=== PATIENT | female | born 1980 | race Caucasian/White ===

== ENCOUNTER 2023-02-04 11:41 | Outpatient (REF) | payer MEDICAID, SELFPAY ==
[2023-02-04 14:43] LABS: TSH reflex Free T4 0.69 uIU/mL (0.32-4.0)
== END 2023-02-04 11:42 | disposition home or self-care (01) ==
LOC: HO.HHCL 11:41
PROVIDERS: Visit Provider Internal Medicine Geriatric Medicine
DX: E03.9 Hypothyroidism, unspecified (principal)
CPT/HCPCS: 36415; 84443

== ENCOUNTER 2023-08-02 09:25 | Outpatient (REF) | payer MEDICAID, SELFPAY ==
[2023-08-02 10:48] LABS: Alanine Aminotransferase 13 U/L (0-31); Albumin Level 4.3 g/dL (3.5-5.0); Alkaline Phosphatase 73 U/L (39-117); Anion Gap 11 (12-20); Aspartate Amino Transferase 13 U/L (5-31); Bilirubin Total 1.1 mg/dL (0.0-1.0); Blood Urea Nitrogen 13 mg/dL (9-16); Calcium 9.2 mg/dL (8.4-10.2); Carbon Dioxide 26 mmol/L (22-29); Chloride 107 mmol/L (96-108); Cholesterol 143 mg/dL (<200); Estimated Glomerular Filt Rate > 60; Glucose Random 84 mg/dL (60-115); HDL Cholesterol 47 mg/dL (>40); LDL Cholesterol Calculated 82 mg/dL (<100); Potassium 4.5 mmol/L (3.3-5.1); Sodium 139 mmol/L (135-145); Total Protein 7.3 g/dL (6.5-8.0); Triglycerides 74 mg/dL (<150)
[2023-08-02 11:03] LABS: TSH reflex Free T4 1.51 uIU/mL (0.32-4.0)
== END 2023-08-02 09:26 | disposition home or self-care (01) ==
LOC: HO.LAB 09:25
PROVIDERS: PCP Internal Medicine Geriatric Medicine; Visit Provider Internal Medicine Geriatric Medicine
DX: Z00.00 Encounter for general adult medical examination without abnormal findings (principal); E03.9 Hypothyroidism, unspecified; Z13.220 Encounter for screening for lipoid disorders; Z13.1 Encounter for screening for diabetes mellitus
CPT/HCPCS: 36415; 80053; 80061; 84443

== ENCOUNTER 2024-01-23 15:44 | Outpatient (REF) | payer MEDICAID, SELFPAY ==
[2024-01-23 18:07] LABS: TSH reflex Free T4 21.86 uIU/mL (0.32-4.0)
[2024-01-23 18:40] LABS: Free T4 (Free Thyroxine) 0.73 ng/dL (0.71-1.85)
== END 2024-01-23 15:45 | disposition home or self-care (01) ==
LOC: HO.HHCL 15:44
PROVIDERS: Visit Provider Internal Medicine Geriatric Medicine
DX: E03.9 Hypothyroidism, unspecified (principal)
CPT/HCPCS: 36415; 84439; 84443

== ENCOUNTER 2024-08-18 16:05 | Outpatient (REF) | payer MEDICAID, SELFPAY ==
--- OUTSIDE RECORDS SUMMARY | 2024-08-18 16:07 | XMS_ITS | Encounter Summary ---
Author Organization [employer] Address [address] [place] [address] Care Team Providers Care Guitar Repairer Name Role Phone Name, Shahram SHAIKH Primary Care Provider [phone] Encounter Details Date Type Department Care Team (Latest Contact Info) Description 08/18/2024 Travel Social History Tobacco Use Types Packs/Day Years Used Date Smoking Tobacco: Never Smokeless Tobacco: Never Alcohol Use Standard Drinks/Week Comments Yes 0 (1 standard drink = 0.6 oz pur e alcohol) occassional Depression Answer Date Recorded Patient Health Questionnaire-9 Score 0 2022 Housing Stability Answer Date Recorded What is your housing situation today? I have regina sing 07/15/[address] you li ve. Do you have problems with any of the following? None of the above 07/15/2023 Food Insecurity Answer Date Recorded Within the past 12 months, y ou worried that your food would run out before you got money to buy more: Never True 07/15/2023 Within the past 12 months,th e food you bought just didn't last and you didn't have enough money to get more: Never True Transportation Answer Date Recorded In the past 12 months, has l ack of transportation kept you from medical appts, meetings, work or from getting things needed for daily living? No 07/15/2023 Utilities Answer Date Recorded In the past 12 months, has t he electric, gas, oil or water company threatened to shut off services in your home? No 07/15/2023 Depression Answer Date Recorded Patient Health Questionnaire-2 Score 0 2022 Comments Unknown Sex and Gender Information Value Date Recorded Sex Assigned at Female 04/29/2022 10:29 AM EDT Legal Sex Female 10:29 AM EDT Gender Identity Female 04/29/2022 10:29 AM EDT Sexual Orientation Straight 04/29/2022 10 :29 AM EDT documented as of this encounter Plan of Treatment Upcoming Encounters Date Type Department Care Team (Late st Contact Info) Description 11/15/2024 3:30 PM EDT Office Visit [facility] [address] [place] [address] Name, MD Shahram [address] [place] [address] documented as of this encounter Visit Diagnoses Not on filedocumented in this encounter Additional Health Concerns Assessment Noted Time PHQ-9 Depression Total Score: 0 07/02/19 23 3:02 PM EST documented as of this encounter Care Teams Guitar Repairer Relationship Specialty Start Date End Date Name, MD Shahram [address] [place] [id number] PCP - General Family Medicine 08/25/15 documented as of this encounter
--- OUTSIDE RECORDS SUMMARY | 2024-08-18 16:07 | XMS_ITS | Encounter Summary ---
Author Organization [employer] Address [address] [facility] 7t [place] [address] Care Team Providers Care Steamfitter Apprentice Name Role Phone Name, Shahram SHAIKH Primary Care Provider [phone] Reason for Visit * Reason Comments Pre-visit Planning SDOH unable to reach LVM Encounter Details Date Type Department Care Team ([facility] st Contact Info) Description 08/10/[address] [facility] [address] [place], [place] [phone] Name, MD Shahram [address] [place] [address] Pre-visit Planning (SDOH unable to reach LVM) Social History Tobacco Use Types Packs/Day Years Used Date Smoking Tobacco: Never Smokeless Tobacco: Never Alcohol Use Standard Drinks/Week Comments Yes 0 (1 standard drink = 0.6 oz pur e alcohol) occassional Depression Answer Date Recorded Patient Health Questionnaire-9 Score 0 2022 Housing Stability Answer Date Recorded What is your housing situation today? I have regina butler 07/15/[address] you li [...] AM EDT documented as of this encounter Progress Notes * Any Caruos - 08/10/2024 11:26 AM EST ALICIA Judge placed outbound call to patient to complete pre-visit planning. No answer at this time. Patient name and were not confirmed. CC left voicemail requesting return call. Direct contactinformation provided. documented in this encounter Plan of Treatment Upcoming Encounters Date Type Department Care Team (Late st Contact Info) Description 11/15/2024 3:30 PM EDT Office Visit [facility] [address] [place] [address] NameShahram MD [address] [place] [address] documented as of this encounter Visit Diagnoses Not on filedocumented in this encounter Additional Health Concerns Assessment Noted Time PHQ-9 Depression Total Score: 0 07/02/19 23 3:02 PM EST documented as of this encounter Care Teams Steamfitter Apprentice Relationship Specialty Start Date End Date Shahram Abdul MD [address] [place] [id number] PCP - General Family Medicine 08/25/15 documented as of this encounter
--- OUTSIDE RECORDS SUMMARY | 2024-08-18 16:07 | XMS_ITS | Encounter Summary ---
Author Organization [facility] Address [address] [facility] [address] [place] [address] Care Team Providers Care Medical Staff Coordinator Name Role Phone Name, Shahram SHAIKH Primary Care Provider [phone] Reason for Visit * Reason Comments Med Refill Encounter Details Date Type Department Care Team ([facility] st Contact Info) Description 03/17/2024 Refill [facility] [address] [place] [address] Name, MD Shahram [address] [place], [place] [phone] Social History Tobacco Use Types Packs/Day Years Used Date Smoking Tobacco: Never Smokeless Tobacco: Never Alcohol Use Standard Drinks/Week Comments Yes 0 (1 standard drink = 0.6 oz pur e alcohol) occassional Depression Answer Date Recorded Patient Health Questionnaire-9 Score 0 2022 Housing Stability Answer Date Recorded What is your housing situation today? I have regina carrie 07/15/[address] you li [...] Description 11/15/2024 3:30 PM EDT Office Visit [facility] [address] [place] [phone] Name, MD Shahram [address] [place] [address] documented as of this encounter Visit Diagnoses Not on filedocumented in this encounter Additional Health Concerns Assessment Noted Time PHQ-9 Depression Total Score: 0 07/02/19 23 3:02 PM EST documented as of this encounter Care Teams Medical Staff Coordinator Relationship Specialty Start Date End Date Name, MD Shahram [address] [place] [id number] PCP - General Family Medicine 08/25/15 documented as of this encounter
--- OUTSIDE RECORDS SUMMARY | 2024-08-18 16:07 | XMS_ITS | Clinical Summary ---
Author Organization [facility] Address [address] [place] [address] Care Team Providers Care Probate Lawyer Name Role Phone Name, Shahram SHAIKH Primary Care Provider [phone] Surgical History Surgery Date Site/Laterality Comments THYROIDECTOMY PROCEDURE: HISTORICAL TOTAL THYROIDECTOMY; COMMENT: 2012 TUBAL LIGATION PROCEDURE: HISTORICAL TUBAL LIGATION OTHER SURGICAL HISTORY PROCEDURE: MD HYSTEROSCOPY ENDOMETRIAL ABLATION Medical History Medical History Date Comments Chronic back pain 11/13/2012 DX:Chronic jessy k pain Chronic neck pain 11/13/2012 DX:Chronic nec k pain Headache(784.0) 11/13/2012 DX:Headache(784. 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 Sister Alive htn Son Alive Social History Tobacco Use Types Packs/Day Years Used Date Smoking Tobacco: Never Smokeless Tobacco: Never Alcohol Use Standard Drinks/Week Comments No 0 (1 standard drink = 0.6 oz pur e alcohol) Comments Unknown Sex and Gender Information Value Date Recorded Sex Assigned at Not on file Legal Sex Female 2:17 AM EST Gender Identity Not on file Sexual Orientation Not on file Obstetrics History Last Filed Vital Signs Vital Sign Reading Time Taken Comments Blood Pressure 116/88 01/21/2024 1:29 PM EDT Pulse 89 01/21/2024 1:29 PM EDT Temperature - - Respiratory Rate - - Oxygen Saturation - - Inhaled Oxygen Concentration - - Weight 78.9 kg (174 lb) 01/21/2024 1:29 PM EDT Height 157.5 cm (5' 2 ) 01/21/2024 1:29 PM EDT Body Mass Index 31.83 01/21/2024 1:29 PM EDT Plan of Treatment Upcoming Encounters Date Type Department Care Team (Late st Contact Info) Description 09/20/2024 4:10 PM EDT Appointment Radiology Department [address] [phone] Health Maintenance Due Date Last Done Comments Hepatitis B Vaccines (1 of 3 - 19+ 3-dose series) 1998 DTaP,Tdap,and Td Vaccines (2 - Td or Tdap) 01/15/2023 01/15/2013 Colorectal Cancer Screening: Colonoscopy 07/30/2023 Depression Screening 07/30/2023 Hepatitis C Screening 07/30/2023 Social Influencers of Health Screening 07/30/2023 COVID-19 Vaccine ( - 2023-2 5 season) 2024 Influenza Vaccine (#1) 2024 5, 04/20/2013 Cervical Cancer Screening: P ap Smear 07/19/2025 07/19/2022 Breast Cancer Screening 09/16/2025 09/17/19 24, 07/29/2022 HIV Screening Completed 01/21/2024 HIB Vaccines Aged Out No longer eligi ble based on patient's age to complete this topic HPV Vaccines Aged Out No longer eligi ble based on patient's age to complete this topic Hepatitis A Vaccines Aged Out No long er eligible based on patient's age to complete this topic IPV Vaccines Aged Out No longer eligi ble based on patient's age to complete this topic MMR Vaccines Aged Out No longer eligi ble based on patient's age to complete this topic Meningococcal ACWY Vaccine Aged Out N o longer eligible based on patient's age to complete this topic Meningococcal B Vacine Aged Out No lo nger eligible based on patient's age to complete this topic Pneumococcal Vaccine: Pediatrics (0 to 5 Years) and At-Risk Patients (6 to 64 Years) Aged Out No longer eligible b ased on patient's age to complete this topic RSV Immunization Patients Under 20 months Aged Out No longer eligible b ased on patient's age to complete this topic Varicella Vaccines Aged Out No longer eligible based on patient's age to complete this topic Procedures Procedure Name Priority Date/Time Associated Diagnosis Comments SCREENING MAMMOGRAPHY BI 2-VIEW BREAST INC CAD Routine 09/17/2023 5:22 PM EDT Encounter for screening mammogram for malignant neoplasm of breast PAP SMEAR Routine 07/19/2022 from Last 3 Months or Most Recently Relevant to Health Maintenance Results * SCREENING MAMMOGRAPHY BI 2-VIEW BREAST INC CAD (09/17/2023 5:22 PM EDT) Anatomical Region Laterality Modality Radiographic Radha ging 07/29/2022 7:21 PM EST Narrative 09/18/2023 12:18 PM EDT This is a summary report. The complete report is available in the patient's medical record. If you cannot access the medical record, please contact the sending organization for a detailed fax or copy. Study: SCREENING MAMMOGRAPHY BI 2-VIEW BREAST INC CAD Technique: Bilateral full-field digital screening mammography is obtained and read in conjunction with computer aided detection. ??Tomosynthesis as well as 2D C-View imaging were obtained. Comparison: July 29, 2022 and September 21, 2014 Breast composition: The breast tissue is heterogeneously dense, which may obscure small masses. Bilateral breasts: No significant masses, suspicious calcifications or other abnormalities are seen in either breast. IMPRESSION: Impression: Bilateral breasts: Negative, no specific mammographic evidence of malignancy. ??Normal interval follow-up is recommended in 12 months. BI-RADS: Category 1: Negative Procedure Note Diego Epperson MD - 02/16/2024 This is a summary report. The complete report is available in thepatient's medical record. If you cannot access the medical record, pleasecontact the sending organization for a detailed fax or copy. Study: SCREENING MAMMOGRAPHY BI 2-VIEW BREAST INC CAD Technique: Bilateral full-field digital screening mammography is obtainedand read in conjunction with computer aided detection. Tomosynthesis aswell as 2D C-View imaging were obtained. Comparison: July 29, 2022 and September 21, 2014 Breast composition: The breast tissue is heterogeneously dense, which mayobscure small masses. Bilateral breasts: No significant masses, suspicious calcifications orother abnormalities are seen in either breast. IMPRESSION: Impression: Bilateral breasts: Negative, no specific mammographic evidence ofmalignancy. Normal interval follow-up is recommended in 12 months. BI-RADS: Category 1: Negative us Emerita Nova CNM IMG XR PROCEDURES Final Result * Pap smear (07/19/2022) 07/19/2022 Narrative HISTORICAL TESTING LAB RESULTING AGENCY - 07/31/2022 8:00 AM EST [id number] THINPREP PAP, IMAGED: NEGATIVE FOR SQUAMOUS INTRAEPITHELIAL LESION AND MALIGNANCY . MAT SILVA(ASCP) (CASE ELECTRONICALLY SIGNED 07 30 2022) RESULT OF APTIMA HIGH RISK HPV ASSAY: HIGH RISK HPV: ??NEGATIVE (SEROTYPES 16,18,31,33,35,39,45,51,52,56,58,59,66,68) COMPLETED ON 2022-07-24 ADEQUACY: SATISFACTORY ENDOCERVICAL/TRANSFORMATION ZONE COMPONENT PRESENT. SOURCE: THINPREP PAP HPV ANY DX: ??REFLEX 16 AND 18, CERVICAL, IMAGED CLINICAL INFORMATION: HPV ANY DIAGNOSIS. [[id number]] us Emerita Nova CNM LAB CYTOLOGY ORDERABLES Final R esult HISTORICAL TESTING LAB RESULTING AGENCY from Last 3 Months or Most Recently Relevant to Health Maintenance Care Teams Probate Lawyer Relationship Specialty Start Date End Date Name, MD Shahram [address] [place], [place] PCP - General 09/22/12
--- OUTSIDE RECORDS SUMMARY | 2024-08-18 16:07 | XMS_ITS | Encounter Summary ---
Author Organization [employer] [facility] Address [address] [facility] [address]t [place] [address] Care Team Providers Care Director Of Casino Marketing Name Role Phone Name, Shahram SHAIKH Primary Care Provider [phone] Reason for Visit * Reason Comments Annual Exam Encounter Details Date Type Department Care Team (Latest Contact Info) Description 08/18/2024 2:45 PM EST Office Visit [facility] [address] [place] [address] Name, MD Shahram [address] [place], [place] [phone] Epigastric pain (Primary Dx); Acquired hypothyroidism Social History Tobacco Use Types Packs/Day Years Used Date Smoking Tobacco: Never Smokeless Tobacco: Never Tobacco Cessation:Counseling Given: Not Answered Alcohol Use Standard Drinks/Week Comments Yes 0 [...] AM EDT documented as of this encounter Last Filed Vital Signs Vital Sign Reading Time Taken Comments Blood Pressure 132/81 08/18/2024 3:22 PM EST Pulse 82 08/18/2024 3:22 PM EST Temperature 36.6 ??C (97.9 ??F) 08/18/2024 3:22 PM ES T Respiratory Rate 21 08/18/2024 3:22 PM EST Oxygen Saturation 97% 08/18/2024 3:22 PM EST Inhaled Oxygen Concentration - - Weight 80 kg (176 lb 6.4 oz) 08/18/2024 3:22 PM EST Height 157.5 cm (5' 2 ) 08/18/2024 3:22 PM EST Body Mass Index 32.26 08/18/2024 3:22 PM EST documented in this encounter Plan of Treatment Upcoming Encounters Date Type Department Care Team (Late st Contact Info) Description 11/15/2024 3:30 PM EDT Office Visit [facility] [address] [place] [phone] Name, MD Shahram [address] [place] [address] Scheduled Orders Name Type Priority Associated Diagnoses Orde r Schedule CBC auto differential Lab Routine Epigastric pain Expected: 08/18/2024 (Approximate), Expires: 08/18/2025 Comprehensive Metabolic Panel Lab Routine Epigastric pain Expected: 08/18/2024 (Approximate), Expires: 08/18/2025 TSH W/Reflex to FT4 Lab Routine Acquired hypothyroidism Expected: 08/18/2024 (Approximate), Expires: 08/18/2025 documented as of this encounter Visit Diagnoses Diagnosis Epigastric pain- Primary Abdominal pain, epigastric Acquired hypothyroidism Unspecified hypothyroidism documented in this encounter Additional Health Concerns Assessment Noted Time PHQ-9 Depression Total Score: 0 07/02/19 23 3:02 PM EST documented as of this encounter Care Teams Director Of Casino Marketing Relationship Specialty Start Date End Date Name, MD Shahram [address] [place] [address] PCP - General Family Medicine 08/25/15 documented as of this encounter
--- OUTSIDE RECORDS SUMMARY | 2024-08-18 16:07 | XMS_ITS | Encounter Summary ---
Author Organization [employer] [facility] Address [address] [facility] 7t [place] [address] Care Team Providers Care Shipping Lead Name Role Phone Name, Shahram SHAIKH Primary Care Provider Reason for Visit * Reason Comments Med Refill Encounter Details Date Type Department Care Team ([facility] st Contact Info) Description 03/13/2024 Refill [facility] [address] [place] [address] Name, MD Shahram [address] [place], [place] [phone] Acquired hypothyroidism Social History Tobacco Use Types Packs/Day Years Used Date Smoking Tobacco: Never Smokeless Tobacco: Never Alcohol Use Standard Drinks/Week Comments Yes 0 (1 standard drink = 0.6 oz pur e alcohol) occassional Depression Answer Date Recorded Patient Health Questionnaire-9 Score 0 2022 Housing Stability Answer Date Recorded What is your housing situation today? I have reginawinston butler 07/15/[address] you [...] Description 11/15/2024 3:30 PM EDT Office Visit [facility] [address] [place] [phone] Name, MD Shahram [address] [place] [phone] documented as of this encounter Visit Diagnoses Diagnosis Acquired hypothyroidism Unspecified hypothyroidism documented in this encounter Additional Health Concerns Assessment Noted Time PHQ-9 Depression Total Score: 0 07/02/19 23 3:02 PM EST documented as of this encounter Care Teams Shipping Lead Relationship Specialty Start Date End Date Name, MD Shahram [address] [place] [id number] PCP - General Family Medicine 08/25/15 documented as of this encounter
--- OUTSIDE RECORDS SUMMARY | 2024-08-18 16:08 | XMS_ITS | Clinical Summary ---
Author Organization [employer] Address [address] [facility] [facility] [address] [place] [address] Care Team Providers Care Admissions Rn Name Role Phone Name, Shahram SHAIKH Primary Care Provider [phone] Allergies No known active allergies Medications norethindrone (Micronor) 0.35 MG tablet Take 1 tablet by mouth 1 (one) time each day. 01/24/20 22 Active fluticasone (Flonase Allergy Relief) 50 MCG/ACT nasal sprayIndications:A llergic rhinitis, unspecified seasonality, unspecified trigger spray 1 - 2 spray by intranasal route every day in each nostril as needed 48 g 2 06/27/20 22 Active hydrOXYzine pamoate (Vistaril) 25 MG capsule TAKE 1 CAPSULE BY MOUTH TWICE A DAY NEEDED 05/26/20 22 Active DULoxetine (Cymbalta) [address] capsule Take 40 mg by mouth in the morning. 01/09/20 23 Active levothyroxine (Synthroid, Levoxyl) 200 MCG tabletIndications: Acquired hypothyroidism Take 1 tablet (200 mcg) by mouth See administration instructions. One tab Friday to Friday. One and and half tab Friday and Friday 34 tablet 11 01/28/20 24 Active omeprazole OTC (PriLOSEC OTC) 20 MG EC tablet Take 1 tablet (20 mg) by mouth before breakfast. Do not crush, chew, or split. 30 tablet 08/18/19 25 025 Active Active Problems Problem Noted Date Diagnosed Date History of uterine fibroid 10/15/2022 Tubal ligation status 2022 Anxiety 2022 Carpal tunnel syndrome 06/21/2022 Cyst of skin 06/09/2018 History of cholecystectomy 11/28/2015 History of thyroidectomy 08/25/2015 Acquired hypothyroidism 08/25/2015 Encounters Date Type Department Care Team Description 08/18/2024 2:45 PM EST Office Visit [facility] [address] [place] [address] Shahram Abdul MD Epigastric pain (Primary Dx); Acquired hypothyroidism 08/18/2024 Travel 08/10/2024 Patient Outreach [facility] [address] [place] [address] NameShahram MD Pre-visit Planning (SDOH unable to reach [facility]) from Last 3 Months Immunizations Name Administration Dates Next Due Influenza injectable quadriv alent IIV4 with preservative 03/17/2018 Influenza, IIV3, injectable 07/04/2014, 3 Tdap 07/15/2023,01/15/2013 Family History Medical History Relation Name Comments Breast cancer Maternal Grandmother Relation Name Status Comments Maternal Grandmother Social History Tobacco Use Types Packs/Day Years [...] Orientation Straight 04/29/2022 10 :29 AM EDT Last Filed Vital Signs Vital Sign Reading [...] Mass Index 32.26 08/18/2024 3:22 PM EST Plan of Treatment Upcoming Encounters Date Type Department Care Team (Late st Contact Info) Description 11/15/2024 3:30 PM EDT Office Visit [facility] [address] [place] [id number] Name, MD Shahram [address] [place] [address] Health Maintenance Due Date Last Done Comments CT Colonography 1979 Colonoscopy 1979 Colorectal Cancer Screening 1979 FIT DNA/Cologuard 1979 FIT 1979 FOBT 1979 Sigmoidoscopy 1979 Family Planning (PISQ) 1994 Mammogram 2019 Depression Screening 2023 2022, 2022 COVID-19 Vaccine (2023-2 5 season) 2024 03/30/2021, 03/08/2021 Influenza Vaccine (#1) 2024 8, 07/04/2014, 04/20/2013 Pap Smear 03/08/2024 03/08/2021 Hepatitis B Vaccines (2 of 2 - CpG 2-dose series) 03/22/2024 02/23/2024 SDOH Screening 07/15/2024 07/15/2023 Alcohol/Substance Use Screening 01/22/2025 01/23/2024 Tobacco Screening 01/22/2025 01/23/2024 Cervical Cancer Screening 03/08/2026 HPV/Cotest 03/08/2026 03/08/2021, 10/15/2018 Zoster Vaccines (1 of 2) 2029 DTaP/Tdap/Td Vaccines (3 - T d or Tdap) 07/15/2033 07/15/2023, 01/15/2013 RSV Patients and Patients Aged 60 years or older (1 - 1-dose 75+ series) 2054 HIV Screening Completed 03/08/2021, 03/08/2021, 04/17/2020 Hepatitis C Screening Completed 03/08/2021 , 04/17/2020 HIB Vaccines Aged Out No longer eligi [...] patient's age to complete this topic Meningococcal Vaccine Aged Out No komal carlton eligible based on patient's age to complete this topic Pneumococcal Vaccine: Pediatrics (0 to 5 Years) and At-Risk Patients (6 to 49) Years) Aged Out No longer eligible b ased on patient's age to complete this topic RSV under 20 months Aged Out No longe r eligible based on patient's age to complete this topic Rotavirus Vaccines Aged Out No longer eligible based on patient's age to complete this topic Procedures Procedure Name Priority Date/Time Associated Diagnosis Comments ZZZ HISTORICAL HEPATITIS C AB W/REFL TO HCV RNA, QN, PCR Routine 03/08/2021 11:26 AM EDT HIV 1/2 ANTIGEN/ANTIBODY, FOURTH GENERATION W/RFL Routine 03/08/2021 11:24 AM EDT HPV MRNA E6/E7 Routine 03/08/2021 10:19 AM EDT THINPREP PAP Routine 03/08/2021 10:19 AM EDT from Last 3 Months or Most Recently Relevant to Health Maintenance Results * HEPATITIS C AB W/REFL TO HCV RNA, QN, PCR (03/08/2021 11:26 AM EDT) Pathologist [facility] HEPATITIS C ANTIBODY NON-REACT TEAGAN NON-REACT TEAGAN [facility] INDEX 0.03 <1.00 [facility] Comment: ?? HCV antibody was non-reactive. There is no laboratory ?? evidence of HCV infection. ?? In most cases, no further action is required. However, if recent HCV exposure is suspected, a test for HCV RNA (test code 66441) is suggested. ?? For additional information please refer to http://[employer]/faq/MIH89d3 (This link is being provided for informational/ educational purposes only.) ?? 03/08/2021 11:2 6 AM EDT us Olya Bonilla NP HISTORICAL/NON ORDERABLE LABS F inal Result Performing Organization Address [facility] [place]/ZIP Co de Phone Number [facility] [address] * HIV 1/2 ANTIGEN/ANTIBODY,FOURTH GENERATION W/RFL (03/08/2021 11:24 AM EDT) Pathologist [facility] HIV-1/2 ANTIGEN AND ANTIBODIES, 4TH GENERATION W/ REFLEX TNP [facility] Comment:Test cancelled per c lient request. 03/08/2021 11:2 4 AM EDT us Olya Bonilla NP LAB BLOOD ORDERABLES Final Resu lt Performing Organization Address [facility] Co de Phone Number [facility] [address] * THINPREP PAP (03/08/2021 10:19 AM EDT) Clinical Information: None given [facility] COMMENT SEE COMMENT [facility] Comment: EXPLANATORY NOTE: ? The Pap is a screening test for cervical cancer. It is ?? not a diagnostic test and is subject to false negative ?? and false positive results. It is most reliable when a ?? satisfactory sample, regularly obtained, is submitted ?? with relevant clinical findings and history, and when ?? the Pap result is evaluated along with historic and ?? current clinical information. ?? Cook Helper Dessert : SEE COMMENT [facility] Comment: DCR, CT(ASCP) CT screening location: [address] ??[id number] Interpretation/R esult: Negative for intraepithelial lesion or malignancy. [facility] LMP: NONE [facility] Prev. BX: NONE [facility] Prev. PAP: NONE [facility] SOURCE: None given [facility] Statement Of Adequacy: SEE COMMENT [facility] Comment: Satisfactory for evaluation. Endocervical/transformation zone component present. Age and/or menstrual status not provided 03/08/2021 10:1 9 AM EDT Olya Bonilla NP LAB PATHOLOGY ORDERABLES Final Result [facility] [address] * HPV mRNA E6/E7 (03/08/2021 10:19 AM EDT) HPV nRNA E6/E7 Not Detected Not Detected [facility] Comment: Methodology: Ict Help Desk Officer-Mediated Amplification This assay detects E6/E7 viral messenger RNA (mRNA) from 14 high-risk HPV types (16,18,31,33,35,39,45,51,52,56,58,59,66,68). ? The analytical performance characteristics of this assay have been determined by [employer]. The modifications have not been cleared or approved by the FDA. This assay has been validated pursuant to the CLIA regulations and is used for clinical purposes. ?? For additional information, please refer to http://education.[employer]/faq/MOR575u8 (This link if provided for information/ educational purposes only.) 03/08/2021 10:1 9 AM EDT Olya Bonilla JIGGER CROWN POUNCING MACHINE OPERATOR LAB BLOOD ORDERABLES Final Resu lt [facility] [address] [place] [address], from Last 3 Months or Most Recently Relevant to Health Maintenance Insurance [email or web address] Care Teams Admissions Rn Relationship Specialty Start Date End Date Name, MD Shahram [address] [place] [id number] PCP - General Family Medicine 08/25/15
[2024-08-18 18:10] LABS: MANUAL DIFF FLAG NO
[2024-08-18 18:30] LABS: Basophils Absolute Auto 0.1 X10*3/uL (0.0-0.2); Basophils Percent Auto 0.5 % (0-2); Eosinophils Absolute Auto 0.2 X10*3/uL (0.0-0.4); Eosinophils Percent Auto 1.8 % (0-4); Hematocrit 41.7 % (37.0-47.0); Hemoglobin 14.2 g/dl (12.0-16.0); Imm Gran Abs Auto 0.03 X10*3/uL (0.00-0.03); Imm Gran Pct Auto 0.3 % (0.0-0.4); Lymphocytes Absolute Auto 2.4 X10*3/uL (1.2-4.9); Lymphocytes Percent Auto 24.2 % (20-40); Mean Corpuscular HGB Conc 34.1 g/dl (31.0-35.0); Mean Corpuscular Hemoglobin 29.6 pg (27.0-33.0); Mean Corpuscular Volume 86.9 fL (80.0-98.0); Mean Platelet Volume 10.3 fL (9.4-12.3); Monocytes Absolute Auto 0.6 X10*3/uL (0.1-1.2); Monocytes Percent Auto 5.8 % (2-11); Neutrophils Absolute Auto 6.6 x10*3/uL (2.0-8.3); Neutrophils Percent Auto 67.4 % (45-73); Platelet Count 320 X10*3/uL (160-400); Red Cell Distribution Width 12.4 % (11.0-16.0); White Blood Count 9.8 X10*3/uL (4.8-10.8)
[2024-08-18 18:40] LABS: Alanine Aminotransferase 41 U/L (0-31); Albumin Level 4.4 g/dL (3.5-5.0); Alkaline Phosphatase 85 U/L (39-117); Anion Gap 10 (12-20); Aspartate Amino Transferase 30 U/L (5-31); Bilirubin Total 0.4 mg/dL (0.0-1.0); Blood Urea Nitrogen 17 mg/dL (9-16); Calcium 8.9 mg/dL (8.4-10.2); Carbon Dioxide 26 mmol/L (22-29); Chloride 107 mmol/L (96-108); Estimated Glomerular Filt Rate > 60; Glucose Random 91 mg/dL (60-115); Sodium 139 mmol/L (135-145); Total Protein 7.7 g/dL (6.5-8.0)
[2024-08-18 18:46] LABS: TSH reflex Free T4 0.03 uIU/mL (0.32-4.0)
[2024-08-18 20:42] LABS: Free T4 (Free Thyroxine) 1.56 ng/dL (0.71-1.85)
== END 2024-08-18 16:06 | disposition home or self-care (01) ==
LOC: HO.HHCL 16:05
PROVIDERS: Visit Provider Internal Medicine Geriatric Medicine
DX: R10.13 Epigastric pain (principal); E03.9 Hypothyroidism, unspecified
CPT/HCPCS: 36415; 80053; 84439; 84443; 85025

== ENCOUNTER 2024-11-29 09:08 | Outpatient (REF) | payer MEDICAID, SELFPAY ==
--- OUTSIDE RECORDS SUMMARY | 2024-11-29 09:42 | XMS_ITS | Encounter Summary ---
Author Organization [employer] Address [address] [facility] [address] [place] [address] Care Team Providers Care Bender Hand Name Role Phone Name, Shahram SHAIKH Primary Care Provider [phone] Reason for Visit * Reason Comments Med Refill Encounter Details Date Type Department Care Team (Late st Contact Info) Description 03/13/2024 Refill [facility] [address] [place] [address] Name, MD Shahram [address] [place], [place] [id number] Acquired hypothyroidism Social History Tobacco Use Types [...] as of this encounter Plan of Treatment Not on file documented as of this encounter Visit Diagnoses Diagnosis Acquired hypothyroidism Unspecified hypothyroidism documented in this encounter Additional Health Concerns Assessment Noted Time PHQ-9 Depression Total Score: 0 07/02/19 23 3:02 PM EST documented as of this encounter Care Teams Bender Hand Relationship Specialty Start Date End Date Name, MD Shahram [address] [place] [address] PCP - General Family Medicine 08/25/15 documented as of this encounter
[2024-11-29 11:55] LABS: Estimated Average Glucose 108 mg/dL; Hemoglobin A1c % 5.4 % (<6.0)
[2024-11-29 12:07] LABS: Alanine Aminotransferase 35 U/L (0-31); Albumin Level 4.6 g/dL (3.5-5.0); Alkaline Phosphatase 81 U/L (39-117); Anion Gap 10 (12-20); Aspartate Amino Transferase 26 U/L (5-31); Blood Urea Nitrogen 11 mg/dL (9-16); Calcium 9.3 mg/dL (8.4-10.2); Carbon Dioxide 28 mmol/L (22-29); Chloride 107 mmol/L (96-108); Estimated Glomerular Filt Rate > 60; Glucose Random 91 mg/dL (60-115); Potassium 4.6 mmol/L (3.3-5.1); Sodium 140 mmol/L (135-145); Total Protein 7.4 g/dL (6.5-8.0)
== END 2024-11-29 09:09 | disposition home or self-care (01) ==
LOC: HO.HHCL 09:08
PROVIDERS: Visit Provider Internal Medicine Geriatric Medicine
DX: R63.5 Abnormal weight gain (principal); E03.9 Hypothyroidism, unspecified; Z13.1 Encounter for screening for diabetes mellitus
CPT/HCPCS: 36415; 80053; 83036; 84443